=== PATIENT | male | born 1990 | race Caucasian/White ===

== ENCOUNTER 2016-08-20 17:24 | Emergency (ER) | payer SELFPAY ==
[~2016-08-20] VITALS: Ht 180.3 cm; Wt 108.9 kg
[2016-08-20 17:42] VITALS: BP 145/73
--- NOTE | 2016-08-20 17:56 | NUR ---
Patient ambulated to bed 02.
--- NOTE | 2016-08-20 18:09 | NUR ---
Dr. Loyd evaluating patient at bedside.
--- NOTE | 2016-08-20 18:09 | NUR ---
PATIENT PRESENTS TO ED WITH DUE TO PAIN TESTICULAR PAIN SINCE YESTERDAY .DENIES N/V/D; SKIN IS PINK/WARM/DRY; AAOX4 WITH EVEN AND STEADY GAIT; LUNGS CLEAR BL; HR EVEN AND REGULAR; PT DENIES ANY FEVER, CP, SOB, OR COUGH AT THIS TIME; PATIENT STATES PAIN OF 10/10 AT THIS TIME; PATIENT POSITIONED FOR COMFORT; HOB ELEVATED; BEDRAILS UP X2; BED DOWN.
[2016-08-20] MEDS ORDERED: MORPHINE SULFATE 5 MG/ML VIAL IM ONE (18:10)
[2016-08-20] MEDS ORDERED: KETOROLAC 30 MG/ML VIAL IM ONE (18:10)
--- NOTE | 2016-08-20 18:13 | NUR ---
US at bedside.
[2016-08-20] MEDS ORDERED: MORPHINE SULFATE 4 MG/ML SYR IM ONE (18:20)
--- NOTE | 2016-08-20 18:25 | NUR ---
PT WITH CRYING EPISODES US ONGOING, MOTHER AT BEDSIDE.
[2016-08-20] MEDS ORDERED: cefTRIAXone 250 MG in LIDOCAINE 1% ED 0.9 ML IM ONE (18:45)
--- NOTE | 2016-08-20 18:50 | NUR ---
PT CALM AT THIS TIME,NO CRYING, NO PAIN NOTED,VITAL STABLE. FAMILY AT BEDSIDE
--- NOTE | 2016-08-20 19:02 | NUR ---
PT DRINKING WATER AND APPLE JUICE AT THIS TIME, BROTHER AT BEDSIDE, PT CALM NO PAIN NOTED.
--- NOTE | 2016-08-20 19:19 | NUR ---
Patient discharged with v/s stable. Written and verbal after care instructions given and explained. Patient alert, oriented and verbalized understanding of instructions. Ambulatory with steady gait. All questions addressed prior to discharge. ID band removed. Patient advised to follow up with PMD. Rx of NORCO,DOXYCYCLINE AND MOTRIN given. Patient educated on indication of medication including possible reaction and side effects. Opportunity to ask questions provided and answered.
[2016-08-20 19:20] VITALS: BP 109/65
== END 2016-08-20 19:20 | disposition home or self-care (01) ==
LOC: MED 17:24
DX: I86.1 Scrotal varices (principal); N45.1 Epididymitis
CPT/HCPCS: 76870; 96372; 99284; J0696; J1885; J2001; J2270; Q0092

== ENCOUNTER 2017-11-30 19:35 | Emergency (ER) | payer MEDICAID ==
[~2017-11-30] VITALS: Ht 180.3 cm; Wt 129.3 kg
[2017-11-30 19:40] VITALS: BP 158/75
[2017-11-30] MEDS: AMOXICILLIN 500 MG CAP PO ONE (20:06)
[2017-11-30] MEDS: KETOROLAC 60 MG/2 ML VIAL IM ONE (20:07)
[2017-11-30 21:10] VITALS: BP 158/75
== END 2017-11-30 21:10 | disposition home or self-care (01) ==
LOC: MED 19:35
DX: K02.9 Dental caries, unspecified (principal)
CPT/HCPCS: 96372; 99283; J1885

== ENCOUNTER 2018-04-26 17:20 | Inpatient (IN) | payer MEDICAID ==
[~2018-04-26] VITALS: Ht 180.3 cm; Wt 134.3 kg
--- NOTE | 2018-04-26 17:27 | NUR ---
NO ANSWER IN ER LOBBY
--- NOTE | 2018-04-26 17:30 | NUR ---
CALLED, NO ANSWER
--- NOTE | 2018-04-26 17:33 | NUR ---
NO ANSWER IN ER LOBBY
--- NOTE | 2018-04-26 17:39 | NUR ---
PT BROUGHT TO ED BED 11 FOR BEDSIDE TRIAGE
[2018-04-26 17:42] VITALS: BP 140/90
--- NOTE | 2018-04-26 17:45 | NUR ---
C/O RIGHT FOOT REDNESS EDEMA X3 WKS PT DROPPED POWER TOOL 3 WKS AGO TO RIGHT FOOT --SINCE HAS POKED IT WITH A NEEDLE IN AN ATTEMPT TO HAVE EDEMA DECREASE HX---DENIES RX---NONE
[2018-04-26] MEDS ORDERED: metroNIDAZOLE 500 MG/NS PREMIX 100 ML IV ONE (18:00)
[2018-04-26] MEDS ORDERED: VANCOMYCIN PER PHARMACY MC PRN ×2 (18:00→18:40)
[2018-04-26] MEDS ORDERED: KETOROLAC 30 MG/ML VIAL IVP ONE (18:00)
[2018-04-26] MEDS ORDERED: VANCOMYCIN 1GM/DEXT 5% PREMIX 200 ML IV ONE (18:00)
[2018-04-26] MEDS ORDERED: NACL 0.9% 1,000 ML IV SCH (18:00)
[2018-04-26] MEDS ORDERED: HYDROcodone/APAP 7.5/325 MG 1 TAB PO PRN (18:30)
[2018-04-26] MEDS ORDERED: ONDANSETRON 4 MG/2 ML VIAL IM/IVP PRN (18:30)
[2018-04-26] MEDS ORDERED: MORPHINE SULFATE 2 MG/ML SYR IVP PRN (18:30)
[2018-04-26] MEDS ORDERED: ACETAMINOPHEN 325 MG TAB PO PRN (18:30)
[2018-04-26] MEDS ORDERED: DOCUSATE SODIUM 100 MG GELCAP PO PRN (18:30)
[2018-04-26 18:43] LABS: BASOPHILS % (AUTO) 0.5 % (0.0-2.0); EOSINOPHILS # (AUTO) 0.1 K/uL (0-0.4); EOSINOPHILS % (AUTO) 1.3 % (0.0-4.0); HEMATOCRIT 47.7 % (36-52); HEMOGLOBIN 15.9 g/dL (12.0-18.0); LYMPHOCYTES # (AUTO) 2.2 K/uL (2.0-11.5); LYMPHOCYTES % (AUTO) 28.8 % (20.5-51.1); MEAN CORPUSCULAR HEMOGLOBIN 30 pg (27-31); MEAN CORPUSCULAR HGB CONC 33 g/dL (33-37); MEAN CORPUSCULAR VOLUME 89.7 fL (80-94); MONOCYTES # (AUTO) 0.5 K/uL (0.8-1.0); MONOCYTES % (AUTO) 6.8 % (1.7-9.3); NEUTROPHILS # (AUTO) 4.9 K/uL (1.8-7.7); NEUTROPHILS % (AUTO) 62.6 % (42.2-75.2); PLATELET COUNT (AUTO) 135 K/uL (140-450); RED BLOOD CELL COUNT(AUTO) 5.32 MIL/uL (4.20-6.10); RED CELL DISTRIBUTION WIDTH 14.1 % (11.6-13.7); WHITE BLOOD COUNT (AUTO) 7.8 K/uL (4.8-10.8)
[2018-04-26 18:56] LABS: ANION GAP 8.3 (8-16); CARBON DIOXIDE 29.4 mmol/L (21-32); POTASSIUM 3.7 mmol/L (3.5-5.1)
[2018-04-26 18:57] LABS: CREATININE 1.1 mg/dL (0.7-1.3)
[2018-04-26] MEDS ORDERED: VANCOMYCIN HCL 1,500 MG in NACL 0.9% 500 ML IV SCH (19:00)
--- NOTE | 2018-04-26 19:00 | NUR ---
PT ARRIVED AT UNIT VIA GURNEY, PT AMBULATED TO BED, TOLERATED WELL, PT ON ROOM AIR, NO SOB, REPORT RECEIVED FROM ER NURSE, PT STABLE, NO DISTREESS NOTED, IV TO R AC 18 PATENT, INTACT, DATED, INFUSING FLAGYL AT THIS MOMENT, INFUSING WELL, ORIENT PT TO ROOM, BED, CALL LIGHT, AND PHONE, PT STATED UNDERSTANDING, MRSA SWAB TAKEN, V/S WNL, PT DENIES ANY PAIN AT THIS MOMENT, INITIAL ASSESSMENT DONE, ALL SAFETY PRECAUTION MET, CALL LIGHT WITHIN REACH, WILL CONTINUE TO MONITOR.
[2018-04-26 19:03] LABS: PROTHROMBIN TIME 9.7 secs (10.8-13.4)
[2018-04-26 19:04] LABS: ALBUMIN 3.9 g/dL (3.4-5.0); MAGNESIUM 1.9 mg/dL (1.8-2.4); PHOSPHORUS 4.5 mg/dL (2.5-4.9); TOTAL BILIRUBIN 0.6 mg/dL (0.0-1.0)
--- NOTE | 2018-04-26 19:05 | NUR ---
Patient will be admitted to care of Dr Amaya. Admited to M/S. Will go to room 111A. Belongings list completed. Report to Ritchie Palm.
[2018-04-26 19:28] LABS: FREE T4 (FREE THYROXINE) 0.88 ng/dL (0.76-1.46)
[2018-04-26 19:29] LABS: THYROID STIMULATING HORMONE 0.62 uIU/mL (0.34-3.74)
[2018-04-26 19:30] VITALS: BP 115/68
--- NOTE | 2018-04-26 21:03 | NUR ---
DUE MEDICATION ADMINISTERED, PT TOLERATED WELL, NO DISTRESS NOTED, CALL LIGHT WITHIN REACH, WILL CONTINUE TO MONITOR.
[2018-04-26] MEDS: NACL 0.9% 1,000 ML IV SCH (21:08)
[2018-04-26] MEDS ORDERED: INFLUENZA VIRUS VACCINE QUAD 0.5 ML SYR IMVAC PRN (22:30)
[2018-04-26 23:12] LABS: BARBITURATE, URINE NEG. ng/ml (NEG <=200); BENZODIAZEPINE, URINE NEG. ng/mL (NEG <=200); CANNABINOID, URINE NEG. ng/mL (NEG <=50); COCAINE, URINE NEG. ng/mL (NEG <=300); OPIATE, URINE NEG. ng/mL (NEG <=2000); PHENCYCLIDINE SCREEN,URINE NEG. ng/mL (NEG <=25)
[2018-04-26 23:20] LABS: APPEARANCE,URINE SLIGHTLY HAZY (CLEAR); COLOR,URINE YELLOW (YELLOW)
[2018-04-26 23:21] LABS: BILIRUBIN,URINE NEGATIVE (NEGATIVE); BLOOD, URINE NEGATIVE (NEGATIVE); LEUKOCYTE ESTERASE ,URINE NEGATIVE (NEGATIVE); NITRITE, URINE NEGATIVE (NEGATIVE); UGLUCOSE NEGATIVE (NEGATIVE)
[2018-04-26 23:22] LABS: CALCIUM OXALATE CRYSTALS,UR 0-10 /HPF (None Seen); RBC,URINE 0-5 (RARE) /HPF (0-5); WBC,URINE 0-5 (RARE) /HPF (0-5)
[2018-04-27] VITALS (10 sets, daily range): BP systolic 112–126; BP diastolic 61–80
--- NOTE | 2018-04-27 00:02 | NUR ---
CHECKED ON PT, PT SLEEPING, NO DISTRESS NOTED, V/S TAKEN, WNL, PT DENIES ANY PAIN AT THIS MOMENT, CALL LIGHT WITHIN REACH, WILL CONTINUE TO MONITOR.
--- NOTE | 2018-04-27 03:55 | NUR ---
CHECKED ON PT, PT SLEEPING, NO DISTRESS NOTED, CALL LIGHT WITHIN REACH, WILL CONTINUE TO MONITOR.
[2018-04-27 06:23] LABS: T4 (THYROXINE) 7.4 ug/dL (4.5-12.0)
[2018-04-27 06:46] LABS: WHITE BLOOD COUNT (AUTO) 8.1 K/uL (4.8-10.8)
[2018-04-27 06:47] LABS: HEMATOCRIT 45.7 % (36-52); HEMOGLOBIN 14.8 g/dL (12.0-18.0); MEAN CORPUSCULAR HEMOGLOBIN 30 pg (27-31); MEAN CORPUSCULAR HGB CONC 32 g/dL (33-37); MEAN CORPUSCULAR VOLUME 91.1 fL (80-94); NEUTROPHILS % (AUTO) 60.3 % (42.2-75.2); PLATELET COUNT (AUTO) 133 K/uL (140-450); RED BLOOD CELL COUNT(AUTO) 5.02 MIL/uL (4.20-6.10); RED CELL DISTRIBUTION WIDTH 13.3 % (11.6-13.7)
[2018-04-27 06:56] LABS: BASOPHILS # (AUTO) 0.2 K/uL (0.00-0.22); BASOPHILS % (AUTO) 2.5 % (0.0-2.0); EOSINOPHILS # (AUTO) 0.1 K/uL (0-0.4); EOSINOPHILS % (AUTO) 1.8 % (0.0-4.0); LYMPHOCYTES # (AUTO) 2.2 K/uL (2.0-11.5); LYMPHOCYTES % (AUTO) 26.7 % (20.5-51.1); MONOCYTES # (AUTO) 0.7 K/uL (0.8-1.0); MONOCYTES % (AUTO) 8.7 % (1.7-9.3); NEUTROPHILS # (AUTO) 4.9 K/uL (1.8-7.7)
[2018-04-27 07:25] LABS: ANION GAP 9.4 (8-16); CARBON DIOXIDE 27.3 mmol/L (21-32); POTASSIUM 3.7 mmol/L (3.5-5.1)
--- NOTE | 2018-04-27 07:25 | NUR ---
ENDORSED PT TO DAY SHIFT NURSE WES RN, PT STABLE, NO DISTRESS NOTED, CALL LIGHT WITHIN REACH.
--- NOTE | 2018-04-27 07:26 | NUR ---
RECEIVED BEDSIDE REPORT FROM CUTTER OPERATOR TILE NURSE. PATIENT IS AWAKE, ALERT AND ORIENTEDX4. NO SIGNS OF DISTRESS ON ROOM AIR. NO COMPLAINTS OF PAIN AT THIS TIME. PATIENT IS AMBULATORY. SKIN HAS R FOOT 4TH TOE INFECTION. PATIENT IS NPO FOR SURGERY. PATIENT STATES HE IS GOING TO LEAVE IF HE DOES NOT GET A CIGARETTE IN. CHARGE NURSE IN TO SEE PATIENT. I TOLD HIM IF HE LEAVES HE WILL HAVE THE RISK OF THE INFECTION GETTING WORSE AND HAVING HIS FOOT AMPUTATED. HE SAID "ILL DO IT THE [address] WAY AND TAKE IT OUT MYSELF". TOLD HIS GIRLFRIEND AT BEDSIDE TO ENCOURAGE HIM TO BE PATIENT AND THAT SURGERY IS AT 1200. CHARGE NURSE SAID SHE WILL GET NURSING NETWORK CONSULTANT.
[2018-04-27 07:32] LABS: MAGNESIUM 2.1 mg/dL (1.8-2.4); PHOSPHORUS 4.8 mg/dL (2.5-4.9)
--- NOTE | 2018-04-27 08:00 | NUR ---
NURSING WASH BOX OPERATOR IN WITH SECURITY. TOOK HIS CIGARETTES AND EXPLAINED TO HIM THAT HE IS NOT ALLOWED TO HAVE CIGS AND HE WILL GET THEM WHEN HE LEAVES. HE SAID ILL GIVE IT TO MY GIRLFRIEND AND TOOK IT FROM HIS GIRLFRIEND AND GIRLFRIEND SAID "BUT HE IS GOING TO GET MAD AT ME". PATIENT WAS TOLD HE WILL GET IT WHEN HE IS DISCHARGED. WILL GIVE PATIENT NICOTINE PATCH
--- NOTE | 2018-04-27 08:30 | NUR ---
PATIENT HAS BEEN SCREENED AND CATEGORIZED HIGH NUTRITION RISK. PATIENT WILL BE SEEN WITHIN 1-2 DAYS OF ADMISSION. 04/27/18 04/28/[address]
--- NOTE | 2018-04-27 08:35 | NUR ---
CAME IN AND PATIENT WAS OPENING A CANDY. TOLD HIM HE CANNOT HAVE ANYTHING TO EAT. HE SAID IM JUST OPENING IT FOR MY GIRLFRIEND. I ASKED IF HE ATE ANYTHING AND HE SAID NO, NOT SINCE YESTERDAY. I TOLD HIM HE NEEDS TO BE PATIENT BECAUSE IF HE EATS SOMETHING WE WILL CANCEL THE SURGERY. PATIENT SAID OK. ADMINISTERED MEDS. PATIENT TOLERATED WELL.
[2018-04-27] MEDS ORDERED: NICOTINE TRANSD SYS 21 MG/24 HR PATCH TD SCH (09:00)
[2018-04-27] MEDS ORDERED: VANCOMYCIN 2,000 MG in DEXTROSE 5% 500 ML IV SCH (09:00)
[2018-04-27] MEDS ORDERED: LACTOBACILLUS RHAMNOSUS GG 1 EACH CAP PO SCH (09:00)
--- NOTE | 2018-04-27 09:38 | NUR ---
FAMILY AND GIRLFRIEND AT BEDSIDE. PATIENT SHOWS NO SIGNS OF DISTRESS. WILL CONTINUE TO MONITOR THE PATIENT
[2018-04-27] MEDS ORDERED: BUPIVACAINE MPF 0.25% 10 ML VIAL INJ ONE (11:42)
[2018-04-27] MEDS ORDERED: BUPIVACAINE-MPF 0.5% 30 ML VIAL INJ ONE (11:44)
[2018-04-27] MEDS ORDERED: DEXAMETHASONE 4 MG/ML VIAL ONE (11:50)
[2018-04-27] MEDS ORDERED: KETOROLAC 30 MG/ML VIAL ONE (11:50)
[2018-04-27] MEDS ORDERED: SEVOFLURANE 250 ML BTL INH ONE (11:50)
[2018-04-27] MEDS ORDERED: PROPOFOL 200 MG/20 ML VIAL IV ONE (11:50)
[2018-04-27] MEDS ORDERED: ONDANSETRON 4 MG/2 ML VIAL ONE (11:50)
--- NOTE | 2018-04-27 11:55 | NUR ---
PATIENT PICKED UP BY OR NURSE. PATIENT LEFT IN STABLE CONDITION.
[2018-04-27] MEDS ORDERED: MIDAZOLAM 2 MG/2 ML VIAL ONE (12:02)
[2018-04-27] MEDS ORDERED: fentaNYL 0.05 MG/ML VIAL ONE (12:02)
[2018-04-27] MEDS ORDERED: MEPERIDINE 50 MG/ML SYR ONE (12:03)
[2018-04-27] MEDS ORDERED: LACTATED RINGERS 1,000 ML IV SCH (12:22)
[2018-04-27] MEDS ORDERED: diphenhydrAMINE 50 MG/ML VIAL IVP PRN (12:25)
[2018-04-27] MEDS ORDERED: ONDANSETRON 4 MG/2 ML VIAL IVP PRN (12:25)
[2018-04-27] MEDS ORDERED: HYDROmorphone 1 MG/ML AMP IVP PRN (12:25)
[2018-04-27] MEDS ORDERED: MEPERIDINE 25 MG/ML SYR IVP PRN (12:25)
--- NOTE | 2018-04-27 13:35 | NUR ---
PATIENT BACK FROM SURGERY. VITALS ARE STABLE. WILL CONTINUE TO MONITOR. GIRLFRIEND AT BEDSIDE
[2018-04-27] MEDS: NACL 0.9% 1,000 ML IV SCH (13:50)
--- NOTE | 2018-04-27 13:52 | NUR ---
ADMINISTERED IVF. PATIENT TOLERATING WELL. WILL CONTINUE TO MONITOR
--- NOTE | 2018-04-27 14:00 | NUR ---
Initial Review faxed to ERAN Corea and [facility].
--- NOTE | 2018-04-27 15:06 | NUR ---
PATIENT SITTING IN BED. GIRLFRIEND AT BEDSIDE. NO SIGNS OF DISTRESS. WILL CONTINUE TO MONITOR THE PATIENT. BED IN LOW POSITION. CALL LIGHT WITHIN REACH.
--- NOTE | 2018-04-27 15:25 | NUR ---
Unable to fax initial review to [employer] as it keeps failing. Fax number used is [phone].
--- NOTE | 2018-04-27 16:45 | NUR ---
PATIENT WANTS TO GO AMA HE SAID THAT HE REALLY NEEDS TO GO HOME TO HIS TWO SONS. HIS GIRLFRIEND DOES NOT LIVE W HIM AND HIS MOM IS NOT CAPABLE OF WATCHING HIS KIDS. PATIENT WANTS TO GO AMA. DR VAZ IN TO SEE PATIENT AND EXPLAIN THE RISKS OF LEAVING
--- NOTE | 2018-04-27 16:53 | NUR ---
DR VAZ GAVE PRESCRIPTIONS FOR PAIN. EDUCATED PATIENT ON THE MEDS. GAVE PATIENT POST OP SHOE AND GAVE PATIENT DR TANNER OFFICE AND NUMBER. TOLD HIM THE RISKS OF LEAVING AND SAID HE SHOULD MAKE AN APPOINTMENT WITH DR SUH RIGHT AWAY. PATIENT VERBALIZED UNDERSTANDING AND SIGNED AMA FORM. REMOVED IV, IV TIP INTACT. REMOVED ID BANDS. EDUCATED PATIENT ON TO KEEP DRESSING/WOUND CLEAN AND DRY. CANNOT TAKE PHOTO, PER DR SHU DRESSING CHANGES ONLY BY SURGEON. PATIENT SAID HE FEELS FINE AND IS READY TO GO HOME. PATIENT CHANGING. GAVE CIGARETTES BACK
--- NOTE | 2018-04-27 17:00 | NUR ---
PATIENT LEFT AMA IN WHEELCHAIR W POST OP SHOE. GIRLFRIEND BY HIS SIDE. CHARGE NURSE CONCHA GAVE PATIENT DRESSING CHANGES.
[2018-04-27] MEDS ORDERED: IBUP-1801 PO (18:21)
[2018-04-27] MEDS ORDERED: ACET-2869 PO (18:21)
== END 2018-04-27 17:00 | disposition left against medical advice (07) | DRG 351 ==
LOC: MED 17:20 → MTU 18:19
PROVIDERS: ADMIT General Practice; ATTEND General Practice
PROC: 0JCQ0ZZ Extirpation of Matter from Right Foot Subcutaneous Tissue and Fascia, Open Approach (ICD-10-PCS; principal; 2018-04-27 12:00)
DX: M79.5 Residual foreign body in soft tissue (principal); G92 Toxic encephalopathy; L03.115 Cellulitis of right lower limb; E66.01 Morbid (severe) obesity due to excess calories; F17.210 Nicotine dependence, cigarettes, uncomplicated; L02.611 Cutaneous abscess of right foot; T43.621A Poisoning by amphetamines, accidental (unintentional), initial encounter; E78.5 Hyperlipidemia, unspecified; W45.8XXA Other foreign body or object entering through skin, initial encounter; Z53.21 Procedure and treatment not carried out due to patient leaving prior to being seen by health care provider; Z68.34 Body mass index [BMI] 34.0-34.9, adult; Z83.3 Family history of diabetes mellitus; Y92.89 Other specified places as the place of occurrence of the external cause; Y93.89 Activity, other specified; Y99.8 Other external cause status
CPT/HCPCS: 36415; 71045; 73620; 73630; 76536; 80048; 80053; 80305; 81001; 82140; 82150; 82550; 83036; 83605; 83615; 83690; 83735; 83880; 84100; 84436; 84439; 84443; 84479; 84484; 85025; 85610; 85730; 87040; 87070; 87081; 87086; 87186; 93005; 96365; 96375; 99285; J0696; J1100; J1885; J2175; J2250; J2270; J2405; J2704; J3010; J3370; J3490; J7030; J7060; Q0092

== ENCOUNTER 2018-06-08 08:25 | Emergency (ER) | payer MEDICAID ==
[~2018-06-08] VITALS: Ht 180.3 cm; Wt 136.7 kg
[~2018-06-08 08:25] MED LIST: HYDR-5122 PO; IBUP-1801 PO
[2018-06-08 08:41] VITALS: BP 117/76
[2018-06-08] MEDS: KETOROLAC 30 MG/ML VIAL IM ONE (09:54)
[2018-06-08 10:35] VITALS: BP 117/69
== END 2018-06-08 10:35 | disposition home or self-care (01) ==
LOC: MED 08:25
DX: S63.501A Unspecified sprain of right wrist, initial encounter (principal); X50.0XXA Overexertion from strenuous movement or load, initial encounter; Y93.89 Activity, other specified; Y92.89 Other specified places as the place of occurrence of the external cause; Y99.8 Other external cause status; Z79.1 Long term (current) use of non-steroidal anti-inflammatories (NSAID)
CPT/HCPCS: 29125; 73090; 96372; 99283; J1885; Q0092

== ENCOUNTER 2019-03-27 01:13 | Emergency (ER) | payer MEDICAID ==
[~2019-03-27] VITALS: Ht 180.3 cm; Wt 139.3 kg
[2019-03-27 01:16] VITALS: BP 123/79
--- NOTE | 2019-03-27 01:20 | NUR ---
PT AMBULATED TO BED 9
--- NOTE | 2019-03-27 01:34 | NUR ---
DR CLAYTON AT BEDSIDE
[2019-03-27] MEDS ORDERED: MORPHINE SULFATE 4 MG/ML SYR IM ONE (01:35)
--- NOTE | 2019-03-27 01:35 | NUR ---
PT CAME TO ER C/O RIGHT FIFTH DIGIT PAIN SINCE TODAY. PT SHUT CAR DOOR ON FINGER. FINGER IS RED AND SWOLLEN, BLEEDING IS CONTROLLED. PAIN LEVEL 10/10 ACHING. NKA. NO MED HX. SAFETY MEASURES IN PLACE. ERMD AT BEDSIDE.
--- NOTE | 2019-03-27 02:05 | NUR ---
PT RIGHT HAND, FIFTH FINGER BEING SOAKED IN NORMAL SALINE
--- NOTE | 2019-03-27 02:13 | NUR ---
XRAY AT BEDSIDE
[2019-03-27] MEDS ORDERED: LIDOCAINE 1% ***ER ONLY *** 10 MG/ML VIAL INJ ONE (02:15)
[2019-03-27] MEDS ORDERED: LIDOCAINE MPF 1% - 5 mL VIAL 5 ML ONE (02:15)
[2019-03-27] MEDS ORDERED: NEOMYCIN/POLYMYXIN/BACITRACIN 0.9 GM/1 PKT TP ONE (02:15)
--- NOTE | 2019-03-27 02:58 | NUR ---
ERMD AT BEDSIDE
--- NOTE | 2019-03-27 03:00 | NUR ---
PT WOUND ON R 5TH FINGER COVERED WITH NON ADHERENT DRESSING AND WRAPPED WITH COFLEX TAPE AFTER NEOSPORIN APPLIED.
--- NOTE | 2019-03-27 03:15 | NUR ---
PT RESTING IN BED COMFORTABLY WITH EYES CLOSED, VSS. WILL CONTINUE TO MONITOR.
[2019-03-27 03:42] VITALS: BP 129/64
--- NOTE | 2019-03-27 03:42 | NUR ---
DPatient discharged with v/s stable. Written and verbal after care instructions given and explained. Pt encouraged to keep finger clean and dry. Pt also educated to drink plenty of fluids and increase fiber intake to prevent constipation. Patient alert, oriented and verbalized understanding of instructions. Ambulatory with steady gait. All questions addressed prior to discharge. ID band removed. Patient advised to follow up with PMD this week for reevaluation. Rx of NORCO AND MOTRIN was given. Patient educated on indication of medication including possible reaction and side effects. Opportunity to ask questions provided and answered.
== END 2019-03-27 03:42 | disposition home or self-care (01) ==
LOC: MED 01:13
DX: S60.416A Abrasion of right little finger, initial encounter (principal); F17.200 Nicotine dependence, unspecified, uncomplicated; Z79.899 Other long term (current) drug therapy; W22.8XXA Striking against or struck by other objects, initial encounter; Y93.89 Activity, other specified; Y92.89 Other specified places as the place of occurrence of the external cause; Y99.8 Other external cause status
CPT/HCPCS: 64450; 73140; 96372; 99284; J2001; J2270; Q0092

== ENCOUNTER 2019-11-29 10:45 | Emergency (ER) | payer MEDICAID ==
[~2019-11-29] VITALS: Ht 180.3 cm; Wt 117.9 kg
[2019-11-29 11:00] VITALS: BP 120/73
--- NOTE | 2019-11-29 11:05 | NUR ---
PT AMBULATED TO ER BED 04
--- NOTE | 2019-11-29 11:08 | NUR ---
29 YO MALE CO FOOT PAIN SINCE LAST NIGHT. STATED THAT HE WAS MOVING THINGS AT HOME AND A HEAVY OBJECT FELL ON HIS RIGHT BIG TOE. TOE IS SWOLLEN AND RED NO BRUISING NOTED. PT IS ABLE TO PUT VERY LITTLE PRESSURE ON HIS FOOT TO WALK. NO PMH AND NO RX MEDS.
[2019-11-29] MEDS ORDERED: IBUPROFEN 400 MG TAB PO ONE (11:30)
[2019-11-29 12:21] VITALS: BP 120/73
--- NOTE | 2019-11-29 12:23 | NUR ---
Patient discharged with v/s stable. Written and verbal after care instructions given and explained. Patient alert, oriented and verbalized understanding of instructions. Ambulatory with steady gait. All questions addressed prior to discharge. ID band removed. Patient advised to follow up with PMD. Rx of NORCO AND NAPROSYN given. Patient educated on indication of medication including possible reaction and side effects. Opportunity to ask questions provided and answered.
== END 2019-11-29 12:23 | disposition home or self-care (01) ==
LOC: MED 10:45
DX: S92.401A Displaced unspecified fracture of right great toe, initial encounter for closed fracture (principal); F17.200 Nicotine dependence, unspecified, uncomplicated; Z79.899 Other long term (current) drug therapy; X58.XXXA Exposure to other specified factors, initial encounter; Y93.89 Activity, other specified; Y92.89 Other specified places as the place of occurrence of the external cause; Y99.8 Other external cause status
CPT/HCPCS: 73630; 99283; Q0092; 99284

== ENCOUNTER 2019-12-02 04:16 | Emergency (ER) | payer MEDICAID ==
[~2019-12-02] VITALS: Ht 180.3 cm; Wt 81.6 kg
--- NOTE | 2019-12-02 04:27 | NUR ---
PT TAKEN TO ER BED 06
[2019-12-02 04:34] VITALS: BP 130/65
--- NOTE | 2019-12-02 04:35 | NUR ---
PT ASSESSMENT COMPLETE. PT LAYING SUPINE IN BED WITH SIDERAIL UP X1. ALL SAFETY MEASURES IN PLACE. WILL CONTINUE TO MONITOR.
[2019-12-02] MEDS ORDERED: MORPHINE SULFATE 2 MG/ML SYR IM ONE ×2 (04:45→05:20)
--- NOTE | 2019-12-02 05:19 | NUR ---
PT REPORTS A DECREASE IN PAIN, CURRENTLY 7/10 PAIN. ERMD MADE AWARE.
--- NOTE | 2019-12-02 05:40 | NUR ---
Patient discharged with v/s stable. Written and verbal after care instructions given and explained. Patient alert, oriented and verbalized understanding of instructions. Ambulatory with steady gait. All questions addressed prior to discharge. ID band removed. Patient advised to follow up with PMD. Rx of ROBAXIN AND MOTRIN given. Patient educated on indication of medication including possible reaction and side effects. Opportunity to ask questions provided and answered.
[2019-12-02 05:41] VITALS: BP 130/65
== END 2019-12-02 05:40 | disposition home or self-care (01) ==
LOC: MED 04:16
DX: M54.5 Low back pain (principal); R03.0 Elevated blood-pressure reading, without diagnosis of hypertension; Z79.899 Other long term (current) drug therapy
CPT/HCPCS: 96372; 99283; J2270

== ENCOUNTER 2019-12-07 22:21 | Emergency (ER) | payer MEDICAID ==
[~2019-12-07] VITALS: Ht 180.3 cm; Wt 127.0 kg
[2019-12-07 22:25] VITALS: BP 142/81
--- NOTE | 2019-12-07 22:45 | NUR ---
29 Y/O MALE C/O BILAT FLANK, LOWER ABD PAIN X 3 DAYS. RATES PAIN 10/10 AND DESCRIBES IT SHARP, BURNING AND CONSTANT. DENIES ANY FEVER, CHILLS, N,V,D. PT LAST BM WAS 2 DAYS AGO. VSS. LUNG SOUNDS CLEAR ALL THROUGHOUT. ABD IS ROUND, SOFT, ACTIVE BS, AND TENDERNESS ALL THROUGHOUT. TOOK IBUPROFEN AT 1700. PT C/O OF DYSURIA AND DENIES ANY HEMATURIA. NKA. NO PMH.
--- NOTE | 2019-12-07 22:50 | NUR ---
PT TRANSFERRED TO XR VIA W/C.
--- NOTE | 2019-12-07 22:58 | NUR ---
PT RETURNED BACK FROM XR VIA W/C.
[2019-12-07] MEDS ORDERED: LACTULOSE 20 GM/30 ML UDC PO ONE (23:00)
[2019-12-07 23:23] VITALS: BP 142/81
== END 2019-12-07 23:23 | disposition home or self-care (01) ==
LOC: MED 22:21
DX: K59.00 Constipation, unspecified (principal); Z79.899 Other long term (current) drug therapy
CPT/HCPCS: 74018; 81002; 99283

== ENCOUNTER 2019-12-08 16:44 | Emergency (ER) | payer MEDICAID ==
[~2019-12-08] VITALS: Ht 180.3 cm; Wt 127.0 kg
[2019-12-08 16:55] VITALS: BP 115/78
--- NOTE | 2019-12-08 17:00 | NUR ---
Patient transferred to bed 7 via wheelchair by triage nurse. RN evaluating patient at bedside.
--- NOTE | 2019-12-08 17:05 | NUR ---
PT C/O IS ABDOMINAL PAIN THAT RADIATES TO THE BACK. PT STATED THAT HE CAME INTO THE ER LAST NIGHT FOR ABDOMINAL PAIN. ABD IS ROUND, FIRM, AND TENDER TO TOUCH. PT HAS BEEN CONSTIPATED FOR A WEEK. PT PASSED STOOL THIS MORNING. UNABLE TO PASS GAS. BOWEL SOUNDS ACTIVE IN RT AND LT LOWER QUADRANT. NO PMHX NKA/NKDA
--- NOTE | 2019-12-08 17:06 | NUR ---
CLAUDIA Corea is evaluating the patient at bedside.
--- NOTE | 2019-12-08 17:19 | NUR ---
PT DENIES ANY DRUG ALLERGIES.
[2019-12-08] MEDS ORDERED: ONDANSETRON 4 MG ODT PO ONE (17:20)
[2019-12-08] MEDS ORDERED: HYDROcodone/APAP 7.5/325 MG 1 TAB PO ONE (17:20)
[2019-12-08] MEDS ORDERED: KETOROLAC 30 MG/ML VIAL IM ONE (17:20)
--- NOTE | 2019-12-08 17:36 | NUR ---
Patient taken to XRAY via wheelchair by tech.
[2019-12-08 18:31] VITALS: BP 115/78
--- NOTE | 2019-12-08 18:32 | NUR ---
Patient discharged with v/s stable. Written and verbal after care instructions given and explained. Patient alert, oriented and verbalized understanding of instructions. Ambulatory with steady gait. All questions addressed prior to discharge. ID band removed. Patient advised to follow up with PMD. Rx of IBUPROFEN 600MG TAB, MEDROL 4MG TAB, NORCO 5MG-325MG TAB given. Patient educated on indication of medication including possible reaction and side effects. Opportunity to ask questions provided and answered.
== END 2019-12-08 18:32 | disposition home or self-care (01) ==
LOC: MED 16:44
DX: M47.812 Spondylosis without myelopathy or radiculopathy, cervical region (principal); F15.10 Other stimulant abuse, uncomplicated; F12.10 Cannabis abuse, uncomplicated; Z79.899 Other long term (current) drug therapy
CPT/HCPCS: 72100; 81002; 96372; 99283; J1885; Q0162

== ENCOUNTER 2021-04-18 16:56 | Emergency (ER) | payer MEDICAID ==
[~2021-04-18] VITALS: Ht 180.3 cm; Wt 113.4 kg
--- NOTE | 2021-04-18 17:12 | NUR ---
Pt ambulated to bed 01.
[2021-04-18] MEDS ORDERED: KETOROLAC 30 MG/ML VIAL IM ONE (17:20)
[2021-04-18 17:23] VITALS: BP 134/72
--- NOTE | 2021-04-18 17:27 | NUR ---
CLAUDIA DUBON AT AT PT BEDSIDE FOR FURTHER EVALUATION.
--- NOTE | 2021-04-18 17:32 | NUR ---
31 Y/O MALE C/O LEFT SHOULDER PAIN 8/10 S/P HELPING SPOUSE DURING FALL WHILE HIKING [id number]. STATES +HEAD INJURY, DENIES LOC, DENIES N/V, DENIES FEVER/CHILLS. DENIES PMH NKA
--- NOTE | 2021-04-18 18:03 | NUR ---
PER ERMD 12 LEAD WAS DONE ON PT ANDCAME BACK SINUS TACHY CARDIA AT 104 HR.
[2021-04-18] MEDS ORDERED: HYDROcodone/APAP 7.5/325 MG 1 TAB PO ONE (18:05)
[2021-04-18] MEDS ORDERED: IBUP-2218 PO (18:27)
[2021-04-18] MEDS ORDERED: METH-1681 PO (18:27)
--- NOTE | 2021-04-18 18:46 | NUR ---
PER ERMD PT WAS PLACE ON A SLING.
--- NOTE | 2021-04-18 18:48 | NUR ---
Patient discharged with v/s stable. Written and verbal after care instructions given and explained. Patient alert, oriented and verbalized understanding of instructions. Ambulatory with steady gait. All questions addressed prior to discharge. ID band removed. Patient advised to follow up with PMD. Rx of Ibuprofen, Robaxin given. Patient educated on indication of medication including possible reaction and side effects. Opportunity to ask questions provided and answered.
== END 2021-04-18 18:48 | disposition home or self-care (01) ==
LOC: MED 16:56
DX: S46.812A Strain of other muscles, fascia and tendons at shoulder and upper arm level, left arm, initial encounter (principal); S60.222A Contusion of left hand, initial encounter; F12.90 Cannabis use, unspecified, uncomplicated; Z79.899 Other long term (current) drug therapy; W19.XXXA Unspecified fall, initial encounter; Y93.01 Activity, walking, marching and hiking; Y92.89 Other specified places as the place of occurrence of the external cause; Y99.8 Other external cause status
CPT/HCPCS: 71045; 73030; 73130; 93005; 96372; 99284; J1885

== ENCOUNTER 2021-07-27 17:23 | Emergency (ER) | payer MEDICAID ==
[~2021-07-27] VITALS: Ht 180.3 cm; Wt 127.0 kg
[~2021-07-27 17:23] MED LIST changes: +IBUP-2218 PO; +METH-1681 PO
[2021-07-27 18:03] VITALS: BP 140/72
[2021-07-27] MEDS ORDERED: KETOROLAC 30 MG/ML VIAL IM ONE (20:10)
[2021-07-27] MEDS ORDERED: TAM75 PO (20:11)
[2021-07-27] MEDS ORDERED: IBUP-2218 PO (20:11)
[2021-07-27] MEDS ORDERED: PROM118S5 PO (20:11)
[2021-07-27] MEDS ORDERED: AZIT250T4 PO (20:17)
[2021-07-27 21:10] VITALS: BP 140/72
--- NOTE | 2021-07-27 21:10 | NUR ---
Patient discharged with v/s stable. Written and verbal after care instructions given and explained. Patient alert, oriented and verbalized understanding of instructions. Ambulatory with steady gait. All questions addressed prior to discharge. ID band removed. Patient advised to follow up with PMD. Rx of ZITHROMAX,IBUPROFEN, PROMETHAZINE, TAMIFLU given. Patient educated on indication of medication including possible reaction and side effects. Opportunity to ask questions provided and answered.
== END 2021-07-27 21:10 | disposition home or self-care (01) ==
LOC: MED 17:23
DX: B34.9 Viral infection, unspecified (principal); Z20.822 Contact with and (suspected) exposure to COVID-19; R03.0 Elevated blood-pressure reading, without diagnosis of hypertension; E66.9 Obesity, unspecified; Z79.899 Other long term (current) drug therapy; Z68.39 Body mass index [BMI] 39.0-39.9, adult
CPT/HCPCS: 71045; 87426; 87804; 96372; 99284; J1885; U0003

== ENCOUNTER 2023-02-21 20:18 | Emergency (ER) | payer MEDICAID ==
[~2023-02-21] VITALS: Ht 180.3 cm; Wt 145.1 kg
[~2023-02-21 20:18] MED LIST changes: +AZIT250T4 PO; +PROM118S5 PO; +TAM75 PO
[2023-02-21 20:58] VITALS: BP 147/94; PULSE 92; RESP 18; TEMP 97.4; O2SAT 100
[2023-02-21] MEDS ORDERED: IBUPROFEN 600 MG TAB PO ONE (21:50)
[2023-02-21] MEDS ORDERED: PRIMARY CRASH CART TRAY MC ONE (23:01)
[2023-02-21] MEDS ORDERED: ETHYL CHLORIDE 105 ML SPR TP ONE (23:03)
[2023-02-21] MEDS ORDERED: SULF-58 PO (23:12)
[2023-02-21] MEDS ORDERED: IBUP-2213 PO (23:12)
[2023-02-21] MEDS ORDERED: ACET-10509 PO (23:12)
[2023-02-21 23:25] VITALS: BP 140/90; PULSE 90; RESP 18; TEMP 97.1; O2SAT 100
== END 2023-02-21 23:25 | disposition home or self-care (01) ==
LOC: MED 20:18
DX: S61.402A Unspecified open wound of left hand, initial encounter (principal); L08.89 Other specified local infections of the skin and subcutaneous tissue; L02.512 Cutaneous abscess of left hand; Z79.899 Other long term (current) drug therapy; Z79.1 Long term (current) use of non-steroidal anti-inflammatories (NSAID); Z79.2 Long term (current) use of antibiotics; W26.0XXA Contact with knife, initial encounter; Y93.89 Activity, other specified; Y92.89 Other specified places as the place of occurrence of the external cause; Y99.0 Civilian activity done for income or pay
CPT/HCPCS: 10160; 99284

== ENCOUNTER 2023-07-14 | Emergency (ER) | payer MEDICAID ==
[~2023-07-14] VITALS: Ht 180.3 cm; Wt 108.9 kg
[~2023-07-14] MED LIST changes: +ACET-10509 PO; +IBUP-2213 PO; +SULF-58 PO
[2023-07-14 00:16] VITALS: BP 142/75; PULSE 111; RESP 20; TEMP 101.3; O2SAT 95
[2023-07-14] MEDS ORDERED: ACETAMINOPHEN EXTRA STRENGTH 500 MG TAB PO ONE (00:25)
[2023-07-14 00:56] LABS: FLU A ANTIGEN negative (NEGATIVE); FLU B ANTIGEN NEGATIVE (NEGATIVE)
[2023-07-14] MEDS ORDERED: KETOROLAC 60 MG/2 ML VIAL IM ONE (02:40)
[2023-07-14] MEDS ORDERED: HYDROcodone/APAP 5/325 MG 1 TAB TAB PO ONE (02:45)
[2023-07-14 03:46] VITALS: BP 139/71; PULSE 101; RESP 20; TEMP 99.7; O2SAT 98
[2023-07-14] MEDS ORDERED: TAM75 PO (03:56)
[2023-07-14] MEDS ORDERED: ACET-8905 PO (03:56)
[2023-07-14] MEDS ORDERED: NAPR-54 PO (03:56)
== END 2023-07-14 04:04 | disposition home or self-care (01) ==
LOC: MED
DX: B34.9 Viral infection, unspecified (principal); J02.9 Acute pharyngitis, unspecified; Z20.822 Contact with and (suspected) exposure to COVID-19; Z79.1 Long term (current) use of non-steroidal anti-inflammatories (NSAID); Z79.2 Long term (current) use of antibiotics; Z79.899 Other long term (current) drug therapy
CPT/HCPCS: 87426; 87804; 96372; 99283; J1885